=== PATIENT | female | born 1955 | race Hispanic/Latino ===

== ENCOUNTER 2017-05-15 11:44 | Outpatient (CLI) | payer BC ==
--- NOTE | 2017-05-15 14:29 | Mammography Report ---
BILATERAL MAMMOGRAM: FINDINGS: The breasts are almost entirely fat (<25% glandular). No mass, distortion, suspicious calcification, or skin change is seen. No significant changes compared to exams dating back to 2015. CAD was utilized. IMPRESSION: Negative mammogram. There is no mammographic evidence of malignancy. RECOMMENDATION: Follow-up per ACS guidelines. BI-RADS CATEGORY: 1 = Negative ACR BI-RADS MAMMOGRAPHIC CODES: 0 = Needs additional imaging evaluation; 1 = Negative; 2 = Benign; 3 = Probably benign; 4 = Suspicious; 5 = Malignant; 6 = Known biopsy-proven malignancy COMMENT: 1. Dense breast tissue, i.e., adenosis, fibrocystic changes, etc., may obscure an underlying neoplasm. 2. Approximately 10% of cancers are not detected with mammography. 3. A negative mammography report should not delay biopsy if a clinically suspicious mass is present. COMMENT: Patient follow-up letters are generated in [employer].
== END 2017-05-15 11:45 | disposition home or self-care (01) ==
LOC: SPVWC 11:44
PROVIDERS: ATTEND Obstetrics & Gynecology
DX: Z12.31 Encounter for screening mammogram for malignant neoplasm of breast (principal)
CPT/HCPCS: 77067; G0202

== ENCOUNTER 2018-05-16 12:39 | Outpatient (CLI) | payer BC ==
--- NOTE | 2018-05-17 11:19 | Mammography Report ---
BILATERAL DIGITAL SCREENING MAMMOGRAM with CAD: 05/16/18 12:39:00 CLINICAL: Routine screening. COMPARISON:05/15/17 FINDINGS: There are scattered areas of fibroglandular density. No new mass, architectural distortion or suspicious calcifications. IMPRESSION: No mammographic evidence of malignancy. BI-RADS CATEGORY: 2 -- Benign RECOMMENDATION: Routine mammographic screening in one year. COMMENT: Patient follow-up letters are generated by our [employer] application.
== END 2018-05-16 12:40 | disposition home or self-care (01) ==
LOC: SPVWC 12:39
PROVIDERS: ATTEND Obstetrics & Gynecology
DX: Z12.31 Encounter for screening mammogram for malignant neoplasm of breast (principal)
CPT/HCPCS: 77067

== ENCOUNTER 2019-05-26 12:34 | Outpatient (CLI) | payer BC ==
--- NOTE | 2019-05-26 15:45 | Mammography Report ---
DIGITAL SCREENING MAMMOGRAM WITH CAD, 05/26/2019 INDICATION: Routine screening mammography. TECHNIQUE: Digital bilateral 2D mammography was obtained in the craniocaudal and mediolateral obliq ue projections. This examination was interpreted with the benefit of Computer-Aided Detection analysi s. COMPARISON: 05/16/2018 and annual mammograms going back to 05/15/2012. FINDINGS: Breast Density: The breasts are almost entirely fatty. A right outer asymmetry with architectural distortion requires additional imaging. No suspicious calc ifications. There is no evidence of dominant mass, suspicious calcifications or architectural distort ion in the left breast. IMPRESSION: Right asymmetry and architectural distortion requiring additional imaging. Recommend reca ll for right ML, rolled CC and spot compression CC views and right breast ultrasound if needed. Follow up recommendation: Special View: Spot Category 0: Incomplete. Needs additional imaging evaluation and/or prior mammograms for comparison. A "normal" or negative report should not discourage follow up or biopsy of a clinically significant f inding. A written summary of these findings will be mailed to the patient. The patient will be entered into a mammography reporting system which will generate a reminder letter for the patient's next appointmen t at the appropriate interval. The [employer] recommends yearly mammograms starting at age 40 and continuing as l osiris as a woman is in good health. Breast MRI is recommended for women with an approximate 20-25% or greater lifetime risk of breast cancer, including women with a strong family history of breast or ova kamini cancer or who have been treated for Hodgkin's disease. Signer Name: Nirmal Hou MD Signed: 05/26/2019 3:40 PM Workstation Name: [id number]
== END 2019-05-26 12:35 | disposition home or self-care (01) ==
LOC: SPVWC 12:34
PROVIDERS: ATTEND Obstetrics & Gynecology
DX: Z12.31 Encounter for screening mammogram for malignant neoplasm of breast (principal)
CPT/HCPCS: 77067

== ENCOUNTER 2019-06-04 09:33 | Outpatient (CLI) | payer BC ==
--- NOTE | 2019-06-05 11:50 | Ultrasound Report ---
RIGHT DIGITAL DIAGNOSTIC MAMMOGRAM WITH CAD -- 06/04/2019 RIGHT LIMITED BREAST ULTRASOUND INDICATION: Recall to evaluate asymmetry and architectural distortion. ABNORMAL MAMMOGRAM TECHNIQUE: Digital right mammographic imaging was performed. Limited ultrasound was performed. This examination was interpreted with the benefit of Computer-Aided Detection (CAD) analysis. COMPARISON: 05/26/2019 FINDINGS: Breast Density: The breasts are almost entirely fatty. MAMMOGRAPHIC FINDINGS: Additional right mammographic views were performed and are negative. Near comp lete effacement of asymmetry and architectural distortion. This area is not changed compared to exams prior to the last screening. ULTRASOUND FINDINGS: Targeted ultrasound evaluation was performed of the area of interest. Ultrasou nd of the outer breast was performed and demonstrated no mass, cyst or shadowing. No architectural di stortion. IMPRESSION: No mammographic evidence of malignancy. Stable right outer benign asymmetry. Follow up recommendation: Routine yearly BI-RADS Category 2: Benign. A "normal" or negative report should not discourage follow up or biopsy of a clinically significant f inding. A written summary of these findings will be mailed to the patient. The patient will be entered into a mammography reporting system which will generate a reminder letter for the patient's next appointmen t at the appropriate interval. According to the [employer], yearly mammograms are recommended starting at age 40 and continuing as long as a woman is in good health. Breast MRI is recommended for women with an sanket roximately 20-25% or greater lifetime risk of breast cancer, including women with a strong family his tory of breast or ovarian cancer and women who have been treated for Hodgkin's disease. Signer Name: Nirmal Hou MD Signed: 06/05/2019 11:46 AM Workstation Name: [id number]
== END 2019-06-04 09:34 | disposition home or self-care (01) ==
LOC: SPVWC 09:33
PROVIDERS: ATTEND Obstetrics & Gynecology
DX: R92.8 Other abnormal and inconclusive findings on diagnostic imaging of breast (principal)

== ENCOUNTER 2020-07-26 12:13 | Outpatient (CLI) | payer BC ==
--- NOTE | 2020-07-26 18:16 | Mammography Report ---
DIGITAL SCREENING MAMMOGRAM WITH CAD, 07/26/2020 CLINICAL INFORMATION / INDICATION: Routine screening mammography. TECHNIQUE: Digital bilateral 2D mammography was obtained in the craniocaudal and mediolateral obliqu e projections. This examination was interpreted with the benefit of Computer-Aided Detection analysis . COMPARISON: Multiple older mammograms including 05/26/2019 through 05/15/2012 FINDINGS: Breast Density: There are scattered areas of fibroglandular density. No dominant mass, suspicious calcifications, or architectural distortion in the left breast. There is a new small oval nodular density in the right breast at approximately 8-9:00, middle depth. This may further evaluation with spot compression imaging and possibly right breast ultrasound. IMPRESSION: New small nodular density right breast, 8-9:00. Follow up recommendation: Right breast spot compression views with possible right breast ultrasound. BI-RADS Category 0: Incomplete. Needs additional imaging evaluation and/or prior mammograms for tray bhakta. A "normal" or negative report should not discourage follow up or biopsy of a clinically significant f inding. A written summary of these findings will be mailed to the patient. The patient will be entered into a mammography reporting system which will generate a reminder letter for the patient's next appointmen t at the appropriate interval. The [employer] recommends yearly mammograms starting at age 40 and continuing as l osiris as a woman is in good health. Breast MRI is recommended for women with an approximate 20-25% or greater lifetime risk of breast cancer, including women with a strong family history of breast or ova kamini cancer or who have been treated for Hodgkin's disease. Signer Name: Ignacia Yost MD Signed: 07/26/2020 6:12 PM Workstation Name: [id number]
== END 2020-07-26 12:14 | disposition home or self-care (01) ==
LOC: SPVWC 12:13
PROVIDERS: ATTEND Obstetrics & Gynecology
DX: Z12.31 Encounter for screening mammogram for malignant neoplasm of breast (principal); N64.89 Other specified disorders of breast
CPT/HCPCS: 77067

== ENCOUNTER 2020-08-17 14:38 | Outpatient (CLI) | payer BC ==
--- NOTE | 2020-08-17 15:21 | Mammography Report ---
DIGITAL DIAGNOSTIC MAMMOGRAM WITH CAD CONVENTIONAL, 08/17/2020 CLINICAL INFORMATION / INDICATION: ABNORMAL MAMMOGRAM TECHNIQUE: Digital right mammographic imaging was performed. Spot compression views were obtained. This examination was interpreted with the benefit of Computer-aided Detection analysis. COMPARISON: 04/11/2016 through 07/26/2020. FINDINGS: Breast Density: The breasts are almost entirely fatty. Possible nodularity in the right lateral breast persists on the MLO spot compression view but is less prominent or disappears on right CC spot compression view and a true lateral view. The appearance of the tissue in this region has not changed over serial studies and is consistent with asymmetric rachael st tissue.. This area was also evaluated last year with spot compression views and ultrasound without a significant abnormality identified. IMPRESSION: No mammographic evidence of malignancy. Follow up recommendation: Routine yearly BI-RADS Category 2: Benign. A "normal" or negative report should not discourage follow up or biopsy of a clinically significant f inding. A written summary of these findings will be mailed to the patient. The patient will be entered into a mammography reporting system which will generate a reminder letter for the patient's next appointmen t at the appropriate interval. According to the [employer], yearly mammograms are recommended starting at age 40 and continuing as long as a woman is in good health. Breast MRI is recommended for women with an sanket roximately 20-25% or greater lifetime risk of breast cancer, including women with a strong family his tory of breast or ovarian cancer and women who have been treated for Hodgkin's disease. Signer Name: Zach Knight MD Signed: 08/17/2020 3:17 PM Workstation Name: [id number]
== END 2020-08-17 14:39 | disposition home or self-care (01) ==
LOC: SPVWC 14:38
PROVIDERS: ATTEND Obstetrics & Gynecology
DX: R92.8 Other abnormal and inconclusive findings on diagnostic imaging of breast (principal)